=== PATIENT | male | born 1985 | race Caucasian/White ===

== ENCOUNTER 2024-12-18 20:32 | Emergency (ER) | payer OTHER ==
[~2024-12-18] VITALS: Ht 167.6 cm; Wt 106.6 kg
[2024-12-18 20:55] VITALS: TEMP 98.1
[2024-12-18] MEDS ORDERED: IBUP-1490 PO (22:41)
[2024-12-18 22:44] VITALS: BP 115/74; O2SAT 98
== END 2024-12-18 22:45 | disposition home or self-care (01) ==
LOC: ER 20:35
DX: M79.662 Pain in left lower leg (principal); M79.661 Pain in right lower leg; V29.99XA Rider (driver) (passenger) of other motorcycle injured in unspecified traffic accident, initial encounter; Y93.89 Activity, other specified; Y92.410 Unspecified street and highway as the place of occurrence of the external cause; Y99.8 Other external cause status
CPT/HCPCS: 73564-TC; 73590-TC

== ENCOUNTER 2025-05-21 12:38 | Emergency (ER) | payer OTHER ==
[~2025-05-21] VITALS: Ht 160 cm; Wt 102.1 kg
[~2025-05-21 12:38] MED LIST: IBUP-1490 PO
[2025-05-21] MEDS ORDERED: IV NS 0.9% 250 ML IV ONE (12:54)
[2025-05-21] MEDS ORDERED: IOHEXOL-350 100 ML VIAL IV ONE (12:54)
[2025-05-21 13:00] LABS: PLATELET COUNT (AUTO) 231 K/uL (150-450); RED BLOOD CELL COUNT(AUTO) 6.23 MIL/uL (4.5-6.0); RED CELL DISTRIBUTION WIDTH 13.7 % (11.5-15.0); WHITE BLOOD COUNT (AUTO) 10.0 K/uL (4.3-11.0)
[2025-05-21] MEDS: IV NS 0.9% 1,000 ML BAG IV ONE (13:03)
[2025-05-21 13:07] LABS: CALCIUM, SERUM 8.5 mg/dL (8.5-10.1); CREATININE 1.0 mg/dL (0.6-1.3); SODIUM SERUM 136.0 mmol/L (136-145); UREA NITROGEN, BLOOD 14.0 mg/dL (7-18)
[2025-05-21 13:12] LABS: INR 0.99 (0.91-1.10)
[2025-05-21 13:13] LABS: ASPARTATE AMINOTRANSFERASE 38.0 U/L (15-37); TOTAL PROTEIN, SERUM 8.1 g/dL (6.4-8.2)
[2025-05-21] MEDS ORDERED: PRED10TA PO (14:59)
[2025-05-21] MEDS ORDERED: VALA10002 PO (14:59)
[2025-05-21] MEDS: VALACYCLOVIR HCL 500 MG TABLET PO ONE (15:49)
[2025-05-21 16:27] VITALS: BP 128/78; TEMP 98; O2SAT 98
== END 2025-05-21 15:45 | disposition home or self-care (01) ==
LOC: ER 12:40
DX: R29.810 Facial weakness (principal); I10 Essential (primary) hypertension; J45.909 Unspecified asthma, uncomplicated; Z79.52 Long term (current) use of systemic steroids
CPT/HCPCS: 99285; 70450; 96360; 93005; 70498; 70496; 85025; 80048; 80076; 36415; 85730; J7512; J7050; Q9967; J7030